=== PATIENT | male | born 1965 | race Caucasian/White ===

== ENCOUNTER 2024-08-06 06:39 | Day surgery (SDC) | payer OTHER, SELFPAY | END 2024-08-06 12:30 | disposition home or self-care (01) | LOC: GI 06:39 | PROVIDERS: ATTENDING PHYSICIAN Internal Medicine | DX: Z12.11 Encounter for screening for malignant neoplasm of colon (principal); K57.30 Diverticulosis of large intestine without perforation or abscess without bleeding; K64.8 Other hemorrhoids; D12.3 Benign neoplasm of transverse colon; D12.0 Benign neoplasm of cecum; D12.2 Benign neoplasm of ascending colon; K63.5 Polyp of colon | CPT/HCPCS: 45385; 88305 ==

== ENCOUNTER 2025-06-01 12:53 | Emergency (ER) | payer OTHER, SELFPAY ==
[2025-06-01 13:09] VITALS: BP 129/68
[2025-06-01 13:35] LABS: Hematocrit 41.1 % (39.0-52.0); Hemoglobin 14.2 g/dL (13.0-18.0); Mean Corp Hgb Conc. 34.5 g/dL (33.0-37.0); Mean Corpuscular Volume 89.7 fL (80.0-94.0); Nucleated Red Blood Cells % 0 % (-); Platelet Count 271 10^3/uL (130-400); Red Cell Dist. Width 12.8 % (11.5-14.5)
[2025-06-01 13:53] LABS: ALT (SGPT) 38 U/L (0-50); AST (SGOT) 34 U/L (17-59); Albumin 4.3 g/dl (3.5-5.0); Alkaline Phosphatase 96 U/L (38-126); Blood Urea Nitrogen 30 mg/dl (9-20); Calcium 9.8 mg/dl (8.4-10.2); Carbon Dioxide 26 mmol/L (22-30); Chloride 104 mmol/L (98-107); Glucose 86 mg/dl (70-99); Lipase 65 U/L (23-300); Potassium 4.5 mmol/L (3.5-5.1); Sodium 135 mmol/L (135-145); Total Protein 7.3 g/dl (6.3-8.2); eGFR > 60.00
--- NOTE | 2025-06-01 16:16 | ED.GENMED ---
History of Present Illness
General
Chief Complaint: Abdominal Pain
Source: patient
Time Seen by Provider: 06/01/25 16:02
History of Present Illness
History of Present Illness:
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
ongoing for the last few days described to be more mild, dull aching sensation, constant and nonradiating. Due to the persistent nature of the pain [facility] but was recommended to come to the ER for further
evaluation and imaging. Patient denies any fevers, chills, rigors, nausea or vomiting, bowel changes, urinary symptoms, change in oral intake. He did not take anything for the symptoms prior to arrival. Social history noncontributory. Surgical
history was noted for previous hernia but no other abdominal surgeries.
Past History
Past History
ED Past Medical History: Other (SVT undiagnosed)
ED Past Surgical History: Orthopedic and Other
Social History
Tobacco: Non-smoker
Alcohol: Occasional
Drug: None
Personal:
Living: with family
Review of Systems
Review of Systems
All Other Systems: ROS reviewed and negative except as documented in HPI and ROS
Phy Exam
Physical Exam
Physical Exam:
GENERAL: Alert , in no apparent distress
EYE: clear conjunctiva b/l
HEAD: NCAT
ENT: o/p clr, mmm.
CARDIAC: Regular rate and rhythm .
LUNGS: Clear breath sounds bilaterally, no acute respiratory distress, no wheezes/rales/rhonchi
ABDOMEN: Soft, mildly distended, tenderness within the left lower quadrant, no rebound or guarding
NEUROLOGICAL: Alert and oriented
SKIN: Warm and dry, skin intact.
MUSCULOSKELETAL: No edema, well perfused.
PSYCH: Normal and appropriate interaction.
Scores
Heart Failure Risk
Heart Failure Risk Score: Not Applicable
Heart Score for Chest Pain Patients
STEMI patient?: Not applicable
Withdrawal Assessment of Alcohol
Withdrawal Assessment Completed?: Not applicable
Course
Orders/Labs/Results
Orders:
Orders
06/01/25 13:24
Complete Blood Count/With Diff Urgent
Comprehensive Metabolic Panel Urgent
Lipase Urgent
06/01/25 16:12
CT Abd/pelvis W Iv Cont Urgent
Comment:
Reason For Exam: LLQ pain
Abnormal Lab Results
06/01/25
13:24
RBC 4.58 L 10^6/uL
(4.70-6.10)
BUN 30 H mg/dl
(9-20)
06/01/25 13:24
06/01/25 13:24
Vital Signs
Initial and Last Documented VS:
Initial Vital Signs
Temp Pulse Resp BP Pulse Ox
97.8 F 80 19 129/68 96
06/01/25 13:09 06/01/25 13:09 06/01/25 13:09 06/01/25 13:09 06/01/25 13:09
Last Documented Vital Signs
Temp Pulse Resp BP Pulse Ox
98 F 69 16 121/72 95
06/01/25 16:28 06/01/25 16:28 06/01/25 16:28 06/01/25 16:28 06/01/25 16:28
MDM/Problems Addressed
Differential Diagnosis Includes:
Diverticulitis
Colitis
UTI
Renal/Ureteral colic/Kidney stone
Pancreatitis
GERD/Gastritis
Complications from known AAA
MDM/Problems Addressed:
59-year-old male presenting to the ER for evaluation of left lower quadrant abdominal pain that has been ongoing for a couple of days. No fevers, no change in oral intake, has not taken any medications prior to arrival. Hemodynamically stable,
afebrile, no acute distress. Declining anything for symptoms presently. Labs were initiated on arrival which are reassuring. Will obtain CT of the abdomen and pelvis. Disposition pending.
*Radiology
Radiology exam reviewed: radiology read reviewed
*Pulse Oximetry
SaO2: 96
Oxygen Mode of Delivery: Room air
Patient hypoxic: no
*Critical Care Note
Total Time (30-74mins, 75-104mins- exclusive of procedures): Not Applicable
Patient Management
Escalation/DeEscalation of care consider admission/obs:
CT scan shows uncomplicated diverticulitis. Patient is afebrile, no leukocytosis and pain is under control. Will treat with outpatient Augmentin. He will follow-up with primary care provider. Aware of return precautions.
ED Attending Note
-
Portions of this chart may have been created with voice recognition software.� Occasional wrong word or��sound alike� substitutions may have occurred due to the inherent limitations of voice recognition software.
Discharge Plan
Departure
Patient Disposition: Home (Routine Discharge)
Date of Disposition: 06/01/25
Time of Disposition: 17:26
Patient with high blood pressure during this ER visit?: No
Discharge Problem:
Diverticulitis
Instructions: Diverticulitis (DC)
Prescriptions:
New
amoxicillin-pot clavulanate 875-125 mg tablet
1 tab PO BID 10 Days Qty: 20 0RF
No Action
No Meds [No Current Medications]
0
pantoprazole 40 MG tablet,delayed release (DR/EC)
40 mg PO BID Qty: 14 0RF
Referrals:
Kimberlee Kaur DO [Family Provider, Family Practice]
Interventions
Interventions:
*General Assessment Last Done: 06/01/25 13:13
*Neglect/Abuse Screening Last Done: 06/01/25 13:13
*ED COVID-19 Vaccine History Last Done: 06/01/25 13:13
*ED Influenza Vaccine History Last Done: 06/01/25 13:13
[facility] Risk Assessment Tool Last Done: 06/01/25 16:30
*Risk Screen - Suicide (C-SSRS) Last Done: 06/01/25 13:13
*Nursing Disposition Last Done: 06/01/25 17:44
ZW-Friodi-Orjsgqijqg Assessment Last Done: 06/01/25 16:30
Discharge Date and Time
Discharge Date/Time: 06/01/25 17:44
Print Language: TAMAZIGHT
[2025-06-01 16:25] VITALS: BMI 31.2
[2025-06-01 16:28] VITALS: BP 121/72
== END 2025-06-01 17:44 | disposition home or self-care (01) ==
LOC: EMR 12:53
PROVIDERS: Emergency Medicine; EMERGENCY PHYSICIAN Emergency Medicine; FAMILY PHYSICIAN Family Medicine
DX: K57.32 Diverticulitis of large intestine without perforation or abscess without bleeding (principal); I71.40 Abdominal aortic aneurysm, without rupture, unspecified
CPT/HCPCS: 99284; 74177; 80053; 83690; 85025; Q9967